=== PATIENT | female | born 1975 | race Two or more races ===

== ENCOUNTER 2016-07-18 15:52 | Emergency (ER) | payer SELFPAY ==
[~2016-07-18] VITALS: Ht 157.5 cm; Wt 59.0 kg
[2016-07-18 16:03] VITALS: BP 161/94
--- NOTE | 2016-07-18 16:38 | NUR ---
PT IS ALERT AND ORIENTED X 4, V/S STABLE, PT ADMITS TO USING [employer]. NO ACUTE S/S OF DISTRESS NOTED AT THIS TIME.Patient discharged to home with uncle and cousin in stable condition. Written and verbal after care instructions given. Patient verbalizes understanding of instruction.
== END 2016-07-18 16:40 | disposition home or self-care (01) ==
LOC: ER 15:54
DX: F12.90 Cannabis use, unspecified, uncomplicated (principal); I10 Essential (primary) hypertension
CPT/HCPCS: A4606; Z7610